=== PATIENT | female | born 2000 | race African-American/Black ===

== ENCOUNTER → 2021-07-19 | Outpatient (CLI) | payer MEDICAID, OTHER ==
--- NOTE | 2021-07-19 16:56 | Diagnostic Imaging Report ---
PROCEDURE: CT urinary tract, rule out kidney stone. TECHNIQUE: Multiple contiguous axial images were obtained through the abdomen and pelvis without the use of intravenous contrast. Auto Exposure Controls were utilized during the CT exam to meet ALARA standards for radiation dose reduction. INDICATION: Left-sided abdominal pain and hematuria. COMPARISON: No prior study is available for comparison. FINDINGS: Lung bases are clear of acute infiltrate. The liver and gallbladder are unremarkable. There is no biliary ductal dilatation. Pancreas and spleen are unremarkable. No adrenal mass is detected. No definite renal calculi are detected. There is no hydronephrosis. Aorta is nonaneurysmal. Small and large bowel loops are normal caliber. There is no obstruction. No free fluid or fluid collection is seen. The bladder is unremarkable. Uterus and ovaries are unremarkable. No inflammatory changes are identified. The bony structures are nonacute. IMPRESSION: Unremarkable noncontrast CT of the abdomen and pelvis. No urinary tract calculi or obstruction is identified. Dictated by: Dictated on workstation # [id number]
== END ==
LOC: RAD 16:15
PROVIDERS: ATTEND Family Medicine
DX: R31.9 Hematuria, unspecified (principal); R10.9 Unspecified abdominal pain
CPT/HCPCS: 74176